=== PATIENT | female | born 1935 | race Caucasian/White ===

== ENCOUNTER 2016-05-22 09:36 | Inpatient (IN) | payer MEDICARE, OTHER ==
[~2016-05-22] VITALS: Ht 170.2 cm; Wt 54.4 kg
[~2016-05-22 09:36] MED LIST: ALBU18HF INH; ASPI-621 PO; BUDE10.2 PO; CARV3.122 PO; CEFD300C2 PO; CHOL10002 PO; DOXY100T PO; LEVO50TA5 PO; LEVO88TA2 PO; LEVO88TA4 PO; METF10002 PO; METF500T4 PO; MULTIVITAMIN PO; OMEG1CAP34 PO; PRED20TA PO; PRED50TA PO; PRED5TAB PO; SIMV40TA3 PO; TIOT18CA INH; [UNRECOGNIZED DRUG - CODE] PO
[2016-05-22] MEDS ORDERED: SODIUM CHLORIDE FLUSH 10ML SYR IVF ONE (10:30)
[2016-05-22] MEDS ORDERED: oxygen INH (10:30)
[2016-05-22] MEDS ORDERED: methylPREDNISolone SOD SUCC 125 MG/2 ML IVP ONE (10:30)
[2016-05-22] MEDS ORDERED: METF500T4 PO (10:31)
[2016-05-22] MEDS ORDERED: ASPI-496 PO (10:31)
[2016-05-22] MEDS ORDERED: methylPREDNISolone SOD SUCC 125 MG/2 ML ONE (10:34)
[2016-05-22] MEDS ORDERED: ALBUTEROL/IPRATROPIUM 2.5MG/0.5MG, 3 ML ONE (10:39)
[2016-05-22 10:52] LABS: HEMOGLOBIN 12.7 g/dL (11.7-16.4)
[2016-05-22] MEDS ORDERED: ALBUTEROL/IPRATROPIUM 2.5MG/0.5MG, 3 ML NPPB ONE (11:00)
[2016-05-22 11:04] LABS: ASPARTATE AMINO TRANSFERASE 10 U/L (15-37); BLOOD UREA NITROGEN 10 mg/dL (7-18)
[2016-05-22 11:08] LABS: IS PT STATUS REG ER OR PRE ER? YES
[2016-05-22] MEDS ORDERED: SODIUM CHLORIDE FLUSH 10ML SYR IVF PRN (11:30)
[2016-05-22 11:31] LABS: DIFF TOTAL CELLS COUNTED 100 CELL DIFF
[2016-05-22 11:33] LABS: VERIFY COUNTS? YES
[2016-05-22] MEDS: SENNA/DOCUSATE TABLET PO SCH (12:30)
[2016-05-22] MEDS ORDERED: ONDANSETRON 2MG/ML, 2ML IVP PRN (12:30)
[2016-05-22] MEDS: INSULIN REGULAR 100 UNITS/ML, 3ML VIAL SQ-INSULIN SCH ×3 (12:30→21:05)
[2016-05-22] MEDS ORDERED: ENOXAPARIN 40 MG/0.4 ML SQ SCH (12:30)
[2016-05-22] MEDS ORDERED: MORPHINE SULFATE 4 MG/ML, 1ML IVPush PRN (12:30)
[2016-05-22] MEDS ORDERED: LORazepam 2 MG/ML, 1ML IVPush PRN (12:30)
[2016-05-22] MEDS ORDERED: HYDROcodone/APAP 5/325 TABLET PO PRN (12:30)
[2016-05-22 14:35] VITALS: BP 123/57
[2016-05-22] MEDS: SODIUM CHLORIDE 0.9% 1,000 ML IV SCH (16:06)
[2016-05-22] MEDS: methylPREDNISolone SOD SUCC 125 MG/2 ML IVPush SCH ×2 (16:10→23:45)
[2016-05-22] MEDS: AZITHROMYCIN 500 MG TABLET PO SCH (16:16)
[2016-05-22 19:36] VITALS: BP 95/53
[2016-05-22] MEDS ORDERED: SIMVASTATIN 40 MG TABLET PO SCH (21:00)
[2016-05-22] MEDS: FAMOTIDINE 20 MG TABLET PO SCH (21:02)
[2016-05-22] MEDS: CARVEDILOL 3.125 MG TABLET PO SCH (21:03)
[2016-05-22] MEDS: ALBUTEROL/IPRATROPIUM 2.5MG/0.5MG, 3 ML NPPB SCH (21:25)
[2016-05-22] MEDS: BUDESONIDE 0.5 MG/2 ML INHA NPPB SCH (21:25)
[2016-05-22] MEDS: FLUTICASONE/VILANTEROL 200-25MCG/INH INH SCH (23:45)
[2016-05-23] MEDS: SODIUM CHLORIDE 0.9% 1,000 ML IV SCH (01:54)
[2016-05-23 02:13] VITALS: BP 110/61
[2016-05-23 04:01] LABS: HEMOGLOBIN 11.9 g/dL (11.7-16.4)
[2016-05-23 04:15] LABS: BLOOD UREA NITROGEN 13 mg/dL (7-18)
[2016-05-23] MEDS ORDERED: LEVOTHYROXINE 88 MCG TABLET PO SCH (06:00)
[2016-05-23] MEDS: ALBUTEROL/IPRATROPIUM 2.5MG/0.5MG, 3 ML NPPB SCH ×2 (06:32→10:00)
[2016-05-23] MEDS: methylPREDNISolone SOD SUCC 125 MG/2 ML IVPush SCH (07:52)
[2016-05-23] MEDS: FAMOTIDINE 20 MG TABLET PO SCH (07:52)
[2016-05-23] MEDS: AZITHROMYCIN 500 MG TABLET PO SCH (07:52)
[2016-05-23] MEDS: CARVEDILOL 3.125 MG TABLET PO SCH (07:52)
[2016-05-23] MEDS: SENNA/DOCUSATE TABLET PO SCH (07:53)
[2016-05-23] MEDS: FLUTICASONE/VILANTEROL 200-25MCG/INH INH SCH (07:54)
[2016-05-23 08:19] VITALS: BP 102/52
[2016-05-23] MEDS ORDERED: OMEGA-3/FISH OIL CAPSULE PO SCH (09:00)
[2016-05-23] MEDS ORDERED: ASPIRIN 81 MG TABLET EC PO SCH (09:00)
[2016-05-23] MEDS: BUDESONIDE 0.5 MG/2 ML INHA NPPB SCH (09:00)
[2016-05-23] MEDS ORDERED: IMIPRAMINE 50 MG TABLET PO SCH (09:00)
[2016-05-23] MEDS: INSULIN REGULAR 100 UNITS/ML, 3ML VIAL SQ-INSULIN SCH ×2 (09:16→11:40)
[2016-05-23 12:25] VITALS: BP 115/63
[2016-05-23] MEDS ORDERED: PRED10TA PO (12:48)
[2016-05-23] MEDS ORDERED: GUAI400T26 PO (12:48)
[2016-05-23] MEDS ORDERED: FAMO20TA7 PO (12:48)
[2016-05-23] MEDS ORDERED: AZIT500T4 PO (12:48)
== END 2016-05-23 14:40 | disposition home or self-care (01) | DRG 189 ==
LOC: ED 11:17 → EDIP 11:20 → 3NW 14:20 → DCLOUNGE 05-23 14:21
PROVIDERS: ADMIT Internal Medicine; ATTEND Internal Medicine
DX: J96.20 Acute and chronic respiratory failure, unspecified whether with hypoxia or hypercapnia (principal); J44.1 Chronic obstructive pulmonary disease with (acute) exacerbation; D72.829 Elevated white blood cell count, unspecified; E03.9 Hypothyroidism, unspecified; E11.9 Type 2 diabetes mellitus without complications; E78.5 Hyperlipidemia, unspecified; F32.9 Major depressive disorder, single episode, unspecified; I10 Essential (primary) hypertension; I25.2 Old myocardial infarction; Z90.49 Acquired absence of other specified parts of digestive tract; Z85.038 Personal history of other malignant neoplasm of large intestine; Z85.3 Personal history of malignant neoplasm of breast; Z95.0 Presence of cardiac pacemaker; Z87.891 Personal history of nicotine dependence; Z82.49 Family history of ischemic heart disease and other diseases of the circulatory system
CPT/HCPCS: 36415; 71010; 80048; 80053; 82962; 83036; 83605; 83880; 84443; 84484; 85025; 87040; 93005; 94640; 96374; J1650; J1815; J7620; J7626; J2930; J7030

== ENCOUNTER 2017-08-13 10:15 | Inpatient (IN) | payer MEDICARE, OTHER ==
[~2017-08-13] VITALS: Ht 170.2 cm; Wt 67.8 kg
[~2017-08-13 10:15] MED LIST changes: +ASPI-496 PO; +AZIT500T5 PO; -CEFD300C2 PO; +CEFD300C37 PO; +FAMO20TA7 PO; +GUAI400T66 PO; -METF500T4 PO; +METF500T5 PO; +PRED10TA PO; +oxygen INH
[2017-08-13 11:16] LABS: MEAN CORPUSCULAR HEMOGLOBIN 32.5 pg (27.0-34.8); MEAN CORPUSCULAR HGB CONC 33.6 g/dL (32.4-35.8); MEAN CORPUSCULAR VOLUME 96.6 fL (80-100); MEAN PLATELET VOLUME 7.3 fL (7.4-10.4); PLATELET COUNT 225 x10^3/uL (130-400); RED CELL DISTRIBUTION WIDTH 13.2 % (9.6-15.2)
[2017-08-13] MEDS ORDERED: FLUT1BLS3 INH (11:19)
[2017-08-13] MEDS ORDERED: ALBU18HF INH (11:20)
[2017-08-13 11:23] LABS: ALBUMIN 3.1 g/dL (3.4-5.0); ANION GAP 9 mmol/L (5-15); CALCIUM 8.3 mg/dL (8.5-10.1); CHLORIDE 99 mmol/L (98-107)
[2017-08-13 11:44] LABS: MD YES
[2017-08-13 11:46] LABS: <PLATELET ESTIMATE> ADEQUATE; <PLT MORPHOLOGY> NORMAL PLT MORPH; <RBC MORPHOLOGY> NORMAL; BANDS%(MANUAL) 25 % (0-7); EOS#(MANUAL) 0.15 x10^3/uL (0.0-0.4); EOS% (MANUAL) 1 % (1-7); LYMPH#(MANUAL) 1.33 x10^3/uL (1-3.4); LYMPHS% (MANUAL) 9 % (22-44); METAMYELOCYTES# (MANUAL) 0.44 x10^3/uL (0-0); METAMYELOCYTES% (MANUAL) 3 % (0-1); MONOS#(MANUAL) 0.59 x10^3/uL (0.3-2.7); MONOS% (MANUAL) 4 % (2-9); SEG#(MANUAL) 8.58 x10^3/uL (1.8-6.8); SEGS% (MANUAL) 58 % (42-75)
[2017-08-13 12:39] LABS: TROPONIN I < 0.015 ng/mL (0.000-0.045)
[2017-08-13] MEDS ORDERED: CEFTRIAXONE PMX 1GM/50ML 50 ML IVPB ONE (13:00)
[2017-08-13] MEDS ORDERED: ONDANSETRON 2MG/ML, 2ML IVPB PRN (14:00)
[2017-08-13] MEDS ORDERED: ACETAMINOPHEN 325 MG TABLET PO PRN (14:00)
[2017-08-13] MEDS ORDERED: ACETAMINOPHEN 650 MG SUPP PR PRN (14:00)
[2017-08-13] MEDS ORDERED: BISACODYL 10 MG SUPP PR PRN (14:00)
[2017-08-13] MEDS ORDERED: PHARMACY MAY ADJ FOR RENAL FX MC PRN (14:00)
[2017-08-13] MEDS ORDERED: CEFTRIAXONE PMX 1GM/50ML 50 ML ONE (14:42)
[2017-08-13] MEDS: CEFTRIAXONE PMX 1GM/50ML 50 ML IVPB SCH (14:47)
[2017-08-13] MEDS: SODIUM CHLORIDE 0.9% 1,000 ML IV SCH (15:03)
[2017-08-13] MEDS ORDERED: ENOXAPARIN 40 MG/0.4 ML ONE (15:37)
[2017-08-13] MEDS: ENOXAPARIN 40 MG/0.4 ML SQ SCH (15:40)
[2017-08-13] MEDS: INSULIN LISPRO 100 UNITS/ML, PEN SQ-INSULIN SCH ×2 (16:00→22:54)
[2017-08-13] MEDS ORDERED: ALBUTEROL/IPRATROPIUM 2.5MG/0.5MG, 3 ML NPPB PRN (16:30)
[2017-08-13] MEDS: AZITHROMYCIN 500 MG in SODIUM CHLORIDE 0.9% 250 ML IV SCH (17:22)
[2017-08-13 19:05] VITALS: BP 98/59
[2017-08-13] MEDS: ALBUTEROL/IPRATROPIUM 2.5MG/0.5MG, 3 ML NPPB SCH (21:00)
[2017-08-13] MEDS: CARVEDILOL 3.125 MG TABLET PO SCH (21:00)
[2017-08-13] MEDS: metFORMIN 500 MG TABLET PO SCH ×2 (21:00→21:51)
[2017-08-13 21:50] VITALS: BP 104/49
[2017-08-13] MEDS: SIMVASTATIN 40 MG TABLET PO SCH (21:52)
[2017-08-14] MEDS: SODIUM CHLORIDE 0.9% 1,000 ML IV SCH (00:02)
[2017-08-14 01:09] VITALS: BP 101/57
[2017-08-14 05:49] LABS: CHLORIDE 106 mmol/L (98-107)
[2017-08-14 06:00] LABS: MEAN CORPUSCULAR HEMOGLOBIN 32.3 pg (27.0-34.8); MEAN CORPUSCULAR HGB CONC 33.9 g/dL (32.4-35.8); MEAN CORPUSCULAR VOLUME 95.2 fL (80-100); MEAN PLATELET VOLUME 7.4 fL (7.4-10.4); PLATELET COUNT 211 x10^3/uL (130-400); RED BLOOD COUNT 3.36 x10^6/uL (3.82-5.3); RED CELL DISTRIBUTION WIDTH 12.7 % (9.6-15.2)
[2017-08-14 06:21] LABS: ANION GAP 9 mmol/L (5-15); CREATININE 0.63 mg/dL (0.55-1.02)
[2017-08-14] MEDS: LEVOTHYROXINE 88 MCG TABLET PO SCH (06:21)
[2017-08-14 06:22] LABS: MD YES
[2017-08-14 06:23] LABS: BAND#(MANUAL) 1.95 x10^3/uL; BANDS%(MANUAL) 14 % (0-7); LYMPH#(MANUAL) 1.39 x10^3/uL (1-3.4); LYMPHS% (MANUAL) 10 % (22-44); MONOS#(MANUAL) 1.39 x10^3/uL (0.3-2.7); MONOS% (MANUAL) 10 % (2-9); SEG#(MANUAL) 9.17 x10^3/uL (1.8-6.8); SEGS% (MANUAL) 66 % (42-75)
[2017-08-14 06:24] LABS: ANISOCYTOSIS 1+; POLYCHROMASIA 1+
[2017-08-14 06:26] LABS: <PLATELET ESTIMATE> ADEQUATE; <PLT MORPHOLOGY> NORMAL PLT MORPH
[2017-08-14] MEDS: INSULIN LISPRO 100 UNITS/ML, PEN SQ-INSULIN SCH ×4 (07:00→20:44)
[2017-08-14 07:27] VITALS: BP 109/66
[2017-08-14 08:00] VITALS: BP 112/51
[2017-08-14] MEDS: ALBUTEROL/IPRATROPIUM 2.5MG/0.5MG, 3 ML NPPB SCH ×4 (08:32→20:00)
[2017-08-14] MEDS ORDERED: IMIPRAMINE 50 MG TABLET PO SCH (09:00)
[2017-08-14] MEDS ORDERED: HYDROcodone/CHLORPHENIR ORAL SUSP PO PRN (09:00)
[2017-08-14] MEDS: ASPIRIN 81 MG TABLET EC PO SCH (11:00)
[2017-08-14] MEDS: CARVEDILOL 3.125 MG TABLET PO SCH ×2 (11:00→20:43)
[2017-08-14] MEDS: metFORMIN 500 MG TABLET PO SCH ×3 (11:00→20:44)
[2017-08-14] MEDS ORDERED: VANCOMYCIN PER PHARMACY MC PRN (13:30)
[2017-08-14] MEDS ORDERED: PHARMACOKINETIC MONITORING MC PRN (13:30)
[2017-08-14] MEDS ORDERED: PHARMACOKINETIC CONSULTATION MC ONE (13:30)
[2017-08-14 16:22] VITALS: BP 116/68
[2017-08-14] MEDS: ENOXAPARIN 40 MG/0.4 ML SQ SCH (16:24)
[2017-08-14] MEDS: CEFTRIAXONE PMX 1GM/50ML 50 ML IVPB SCH (16:25)
[2017-08-14] MEDS: AZITHROMYCIN 500 MG in SODIUM CHLORIDE 0.9% 250 ML IV SCH (18:10)
[2017-08-14] MEDS: VANCOMYCIN 1,200 MG in SODIUM CHLORIDE 0.9% 250 ML IV SCH (19:27)
[2017-08-14 20:37] VITALS: BP 120/59
[2017-08-14] MEDS: SIMVASTATIN 40 MG TABLET PO SCH (20:43)
[2017-08-14 21:16] VITALS: BP 108/54
[2017-08-15 01:33] VITALS: BP 124/65
[2017-08-15 05:13] LABS: BASOPHILS # (AUTO) 0.02 x10^3/uL (0-0.1); BASOPHILS % (AUTO) 0 % (0-1); EOSINOPHILS # (AUTO) 0.02 x10^3/uL (0-0.4); EOSINOPHILS % (AUTO) 0 % (1-7); LYMPHOCYTES # (AUTO) 1.15 x10^3/uL (1-3.4); LYMPHOCYTES % (AUTO) 9 % (22-44); MD NO; MEAN CORPUSCULAR HEMOGLOBIN 31.1 pg (27.0-34.8); MEAN CORPUSCULAR HGB CONC 32.5 g/dL (32.4-35.8); MEAN CORPUSCULAR VOLUME 95.6 fL (80-100); MEAN PLATELET VOLUME 7.7 fL (7.4-10.4); MONOCYTES # (AUTO) 1.11 x10^3/uL (0.2-0.8); MONOCYTES % (AUTO) 9 % (2-9); NEUTROPHILS # (AUTO) 10.32 x10^3/uL (1.8-6.8); NEUTROPHILS % (AUTO) 82 % (42-75); PLATELET COUNT 224 x10^3/uL (130-400); RED BLOOD COUNT 3.33 x10^6/uL (3.82-5.3); RED CELL DISTRIBUTION WIDTH 12.9 % (9.6-15.2)
[2017-08-15 05:19] LABS: CREATININE 0.53 mg/dL (0.55-1.02)
[2017-08-15] MEDS: LEVOTHYROXINE 88 MCG TABLET PO SCH (06:14)
[2017-08-15] MEDS: ASPIRIN 81 MG TABLET EC PO SCH (08:09)
[2017-08-15] MEDS: CARVEDILOL 3.125 MG TABLET PO SCH ×2 (08:09→21:07)
[2017-08-15] MEDS: metFORMIN 500 MG TABLET PO SCH ×3 (08:10→21:06)
[2017-08-15] MEDS: INSULIN LISPRO 100 UNITS/ML, PEN SQ-INSULIN SCH ×4 (08:11→21:09)
[2017-08-15] MEDS: ALBUTEROL/IPRATROPIUM 2.5MG/0.5MG, 3 ML NPPB SCH ×4 (08:35→19:36)
[2017-08-15 09:02] VITALS: BP 109/55
[2017-08-15] MEDS: AZITHROMYCIN 500 MG in SODIUM CHLORIDE 0.9% 250 ML IV SCH (14:00)
[2017-08-15] MEDS ORDERED: AZITHROMYCIN 500 MG TABLET PO SCH (14:51)
[2017-08-15] MEDS: ENOXAPARIN 40 MG/0.4 ML SQ SCH (15:18)
[2017-08-15] MEDS: CEFTRIAXONE PMX 1GM/50ML 50 ML IVPB SCH (15:19)
[2017-08-15 15:34] LABS: CLOSTRIDIUM DIFFICILE ANTIGEN NEGATIVE; CLOSTRIDIUM DIFFICILE TOXIN NEGATIVE (Negative)
[2017-08-15] MEDS: VANCOMYCIN 1,200 MG in SODIUM CHLORIDE 0.9% 250 ML IV SCH (17:18)
[2017-08-15 17:30] VITALS: BP 116/76
[2017-08-15 20:11] VITALS: BP 157/67
[2017-08-15] MEDS: IMIPRAMINE 25 MG TABLET PO SCH (21:00)
[2017-08-15] MEDS: SIMVASTATIN 40 MG TABLET PO SCH (21:06)
[2017-08-16 01:23] VITALS: BP 104/48
[2017-08-16 05:51] LABS: ALBUMIN 2.4 g/dL (3.4-5.0); ANION GAP 8 mmol/L (5-15); CALCIUM 8.3 mg/dL (8.5-10.1); CHLORIDE 108 mmol/L (98-107)
[2017-08-16 05:53] LABS: CREATININE 0.67 mg/dL (0.55-1.02)
[2017-08-16] MEDS: LEVOTHYROXINE 88 MCG TABLET PO SCH (05:54)
[2017-08-16 06:03] LABS: MEAN CORPUSCULAR HEMOGLOBIN 31.7 pg (27.0-34.8); MEAN CORPUSCULAR HGB CONC 33.1 g/dL (32.4-35.8); MEAN CORPUSCULAR VOLUME 95.7 fL (80-100); MEAN PLATELET VOLUME 7.4 fL (7.4-10.4); PLATELET COUNT 269 x10^3/uL (130-400); RED BLOOD COUNT 3.52 x10^6/uL (3.82-5.3); RED CELL DISTRIBUTION WIDTH 12.5 % (9.6-15.2)
[2017-08-16] MEDS ORDERED: POTASSIUM PHOSPHATE 44 MEQ in SODIUM CHLORIDE 0.9% 500 ML IV ONE (06:30)
[2017-08-16] MEDS ORDERED: MAGNESIUM SULFATE PMX 4GM/100M 100 ML IV ONE (06:30)
[2017-08-16 06:43] LABS: BASOPHILS # (AUTO) 0.03 x10^3/uL (0-0.1); BASOPHILS % (AUTO) 0 % (0-1); EOSINOPHILS # (AUTO) 0.04 x10^3/uL (0-0.4); EOSINOPHILS % (AUTO) 0 % (1-7); LYMPHOCYTES % (AUTO) 8 % (22-44); MD SCAN; MONOCYTES # (AUTO) 1.48 x10^3/uL (0.2-0.8); MONOCYTES % (AUTO) 10 % (2-9); NEUTROPHILS # (AUTO) 12.86 x10^3/uL (1.8-6.8); NEUTROPHILS % (AUTO) 82 % (42-75)
[2017-08-16] MEDS: INSULIN LISPRO 100 UNITS/ML, PEN SQ-INSULIN SCH ×4 (07:00→21:22)
[2017-08-16 07:21] VITALS: BP 137/65
[2017-08-16] MEDS: ALBUTEROL/IPRATROPIUM 2.5MG/0.5MG, 3 ML NPPB SCH ×4 (07:45→19:25)
[2017-08-16] MEDS: POTASSIUM CHLORIDE 20 MEQ TAB.ER.PRT PO SCH ×2 (08:14→16:36)
[2017-08-16] MEDS: metFORMIN 500 MG TABLET PO SCH ×3 (08:15→21:23)
[2017-08-16] MEDS: CARVEDILOL 3.125 MG TABLET PO SCH ×2 (08:15→21:24)
[2017-08-16] MEDS: ASPIRIN 81 MG TABLET EC PO SCH (08:15)
[2017-08-16] MEDS ORDERED: AZITHROMYCIN 500 MG in SODIUM CHLORIDE 0.9% 250 ML IV SCH (09:00)
[2017-08-16 12:54] VITALS: BP 90/49
[2017-08-16] MEDS: methylPREDNISolone SOD SUCC 125 MG/2 ML IVPush SCH ×2 (13:47→21:22)
[2017-08-16] MEDS: CEFTRIAXONE PMX 1GM/50ML 50 ML IVPB SCH (13:48)
[2017-08-16] MEDS: ENOXAPARIN 40 MG/0.4 ML SQ SCH (13:54)
[2017-08-16] MEDS: AMPICILLIN/SULBACTAM 3 GM in SODIUM CHLORIDE 0.9% 100 ML IV SCH ×2 (15:46→21:25)
[2017-08-16 19:43] VITALS: BP 145/73
[2017-08-16] MEDS: SIMVASTATIN 40 MG TABLET PO SCH (21:23)
[2017-08-16] MEDS: IMIPRAMINE 25 MG TABLET PO SCH (21:25)
[2017-08-17 00:45] VITALS: BP 106/57
[2017-08-17] MEDS: methylPREDNISolone SOD SUCC 125 MG/2 ML IVPush SCH ×4 (02:56→22:34)
[2017-08-17] MEDS: AMPICILLIN/SULBACTAM 3 GM in SODIUM CHLORIDE 0.9% 100 ML IV SCH ×4 (03:15→23:04)
[2017-08-17 05:15] LABS: MEAN CORPUSCULAR HEMOGLOBIN 31.8 pg (27.0-34.8); MEAN CORPUSCULAR HGB CONC 33.6 g/dL (32.4-35.8); MEAN CORPUSCULAR VOLUME 94.8 fL (80-100); MEAN PLATELET VOLUME 6.9 fL (7.4-10.4); PLATELET COUNT 253 x10^3/uL (130-400); RED BLOOD COUNT 3.34 x10^6/uL (3.82-5.3); RED CELL DISTRIBUTION WIDTH 12.9 % (9.6-15.2)
[2017-08-17 05:23] LABS: ALBUMIN 2.3 g/dL (3.4-5.0); ANION GAP 10 mmol/L (5-15); CALCIUM 7.7 mg/dL (8.5-10.1); CHLORIDE 109 mmol/L (98-107)
[2017-08-17 06:01] LABS: BASOPHILS # (AUTO) 0.01 x10^3/uL (0-0.1); BASOPHILS % (AUTO) 0 % (0-1); EOSINOPHILS % (AUTO) 0 % (1-7); LYMPHOCYTES # (AUTO) 1.16 x10^3/uL (1-3.4); LYMPHOCYTES % (AUTO) 8 % (22-44); MD SCAN; MONOCYTES # (AUTO) 0.46 x10^3/uL (0.2-0.8); MONOCYTES % (AUTO) 3 % (2-9); NEUTROPHILS # (AUTO) 12.17 x10^3/uL (1.8-6.8); NEUTROPHILS % (AUTO) 88 % (42-75)
[2017-08-17] MEDS: LEVOTHYROXINE 88 MCG TABLET PO SCH (06:22)
[2017-08-17] MEDS: INSULIN LISPRO 100 UNITS/ML, PEN SQ-INSULIN SCH ×4 (07:00→21:42)
[2017-08-17] MEDS: ALBUTEROL/IPRATROPIUM 2.5MG/0.5MG, 3 ML NPPB SCH ×4 (07:30→19:54)
[2017-08-17] MEDS: ASPIRIN 81 MG TABLET EC PO SCH (09:00)
[2017-08-17 09:31] VITALS: BP 137/65
[2017-08-17] MEDS: CARVEDILOL 3.125 MG TABLET PO SCH ×2 (09:35→21:18)
[2017-08-17] MEDS: metFORMIN 500 MG TABLET PO SCH ×3 (09:35→21:18)
[2017-08-17 09:36] LABS: FIO2 100 %
[2017-08-17 12:42] LABS: TOTAL PROTEIN 5.8 g/dL (6.4-8.2)
[2017-08-17] MEDS: ENOXAPARIN 40 MG/0.4 ML SQ SCH (13:13)
[2017-08-17 14:52] VITALS: BP 123/60
[2017-08-17 20:00] VITALS: BP 131/63
[2017-08-17] MEDS: IMIPRAMINE 25 MG TABLET PO SCH (21:00)
[2017-08-17] MEDS: SIMVASTATIN 40 MG TABLET PO SCH (21:18)
[2017-08-18 02:00] VITALS: BP 126/56
[2017-08-18] MEDS: AMPICILLIN/SULBACTAM 3 GM in SODIUM CHLORIDE 0.9% 100 ML IV SCH ×4 (04:39→22:39)
[2017-08-18] MEDS: methylPREDNISolone SOD SUCC 125 MG/2 ML IVPush SCH ×3 (04:39→16:27)
[2017-08-18] MEDS: LEVOTHYROXINE 88 MCG TABLET PO SCH (04:47)
[2017-08-18] MEDS: ALBUTEROL/IPRATROPIUM 2.5MG/0.5MG, 3 ML NPPB SCH ×4 (07:05→19:24)
[2017-08-18] MEDS: CARVEDILOL 3.125 MG TABLET PO SCH ×2 (07:50→20:59)
[2017-08-18] MEDS: metFORMIN 500 MG TABLET PO SCH ×3 (07:50→20:59)
[2017-08-18] MEDS: IMIPRAMINE 25 MG TABLET PO SCH (07:51)
[2017-08-18] MEDS: ASPIRIN 81 MG TABLET EC PO SCH (07:52)
[2017-08-18] MEDS: INSULIN LISPRO 100 UNITS/ML, PEN SQ-INSULIN SCH ×4 (07:53→20:59)
[2017-08-18 09:30] VITALS: BP 103/45
[2017-08-18 14:00] VITALS: BP 137/69
[2017-08-18] MEDS: ENOXAPARIN 40 MG/0.4 ML SQ SCH (14:23)
[2017-08-18] MEDS ORDERED: VANCOMYCIN PER PHARMACY MC PRN (16:30)
[2017-08-18] MEDS ORDERED: VANCOMYCIN 1,200 MG in SODIUM CHLORIDE 0.9% 250 ML IV SCH (17:00)
[2017-08-18] MEDS: SODIUM CHLORIDE 0.9% 1,000 ML IV SCH (17:42)
[2017-08-18 18:52] VITALS: BP 141/57
[2017-08-18] MEDS: LACTOBACILLUS CHEW TABLET PO SCH (20:59)
[2017-08-18] MEDS: SIMVASTATIN 40 MG TABLET PO SCH (20:59)
[2017-08-18] MEDS ORDERED: IMIPRAMINE 50 MG TABLET PO SCH (21:00)
[2017-08-19 01:53] VITALS: BP 136/62
[2017-08-19] MEDS: AMPICILLIN/SULBACTAM 3 GM in SODIUM CHLORIDE 0.9% 100 ML IV SCH ×4 (04:21→22:07)
[2017-08-19 04:46] LABS: MEAN CORPUSCULAR HEMOGLOBIN 31.4 pg (27.0-34.8); MEAN CORPUSCULAR HGB CONC 33.1 g/dL (32.4-35.8); MEAN CORPUSCULAR VOLUME 94.8 fL (80-100); MEAN PLATELET VOLUME 6.9 fL (7.4-10.4); PLATELET COUNT 359 x10^3/uL (130-400); RED BLOOD COUNT 3.63 x10^6/uL (3.82-5.3); RED CELL DISTRIBUTION WIDTH 13.1 % (9.6-15.2)
[2017-08-19 05:08] LABS: HEMOGLOBIN A1C 7.2 % (4.2-6.3)
[2017-08-19 05:46] LABS: MD YES
[2017-08-19 05:49] LABS: <PLATELET ESTIMATE> ADEQUATE; <PLT MORPHOLOGY> NORMAL PLT MORPH; <RBC MORPHOLOGY> NORMAL; BAND#(MANUAL) 0.49 x10^3/uL; BANDS%(MANUAL) 3 % (0-7); LYMPH#(MANUAL) 1.46 x10^3/uL (1-3.4); LYMPHS% (MANUAL) 9 % (22-44); METAMYELOCYTES# (MANUAL) 0.32 x10^3/uL (0-0); METAMYELOCYTES% (MANUAL) 2 % (0-1); MONOS#(MANUAL) 0.65 x10^3/uL (0.3-2.7); MONOS% (MANUAL) 4 % (2-9); MYELOCYTES# (MANUAL) 0.16 x10^3/uL (0-0); MYELOCYTES% (MANUAL) 1 % (0-0); SEG#(MANUAL) 13.12 x10^3/uL (1.8-6.8); SEGS% (MANUAL) 81 % (42-75)
[2017-08-19] MEDS: LEVOTHYROXINE 88 MCG TABLET PO SCH (05:50)
[2017-08-19 07:00] VITALS: BP 149/71
[2017-08-19] MEDS: INSULIN LISPRO 100 UNITS/ML, PEN SQ-INSULIN SCH ×4 (07:00→20:31)
[2017-08-19] MEDS: ALBUTEROL/IPRATROPIUM 2.5MG/0.5MG, 3 ML NPPB SCH ×5 (07:20→19:05)
[2017-08-19] MEDS: LACTOBACILLUS CHEW TABLET PO SCH ×3 (08:30→20:30)
[2017-08-19] MEDS: CARVEDILOL 3.125 MG TABLET PO SCH ×2 (08:30→20:29)
[2017-08-19] MEDS: metFORMIN 500 MG TABLET PO SCH ×3 (08:30→20:30)
[2017-08-19] MEDS: ASPIRIN 81 MG TABLET EC PO SCH (08:30)
[2017-08-19] MEDS ORDERED: methylPREDNISolone SOD SUCC 125 MG/2 ML IVPush SCH (09:00)
[2017-08-19 12:10] VITALS: BP 133/69
[2017-08-19] MEDS: ENOXAPARIN 40 MG/0.4 ML SQ SCH (14:19)
[2017-08-19 20:16] VITALS: BP 121/60
[2017-08-19] MEDS: SIMVASTATIN 40 MG TABLET PO SCH (20:31)
[2017-08-19] MEDS: IMIPRAMINE 25 MG TABLET PO SCH (20:31)
[2017-08-19] MEDS: SODIUM CHLORIDE 0.9% 1,000 ML IV SCH (23:38)
[2017-08-20 02:41] VITALS: BP 143/73
[2017-08-20] MEDS: AMPICILLIN/SULBACTAM 3 GM in SODIUM CHLORIDE 0.9% 100 ML IV SCH ×4 (04:45→22:12)
[2017-08-20] MEDS: LEVOTHYROXINE 88 MCG TABLET PO SCH (05:55)
[2017-08-20] MEDS: ALBUTEROL/IPRATROPIUM 2.5MG/0.5MG, 3 ML NPPB SCH ×4 (06:20→20:05)
[2017-08-20] MEDS: INSULIN LISPRO 100 UNITS/ML, PEN SQ-INSULIN SCH ×4 (07:00→21:00)
[2017-08-20 07:25] VITALS: BP 114/56
[2017-08-20] MEDS ORDERED: MIDAZOLAM 1 MG/ML, 5ML ONE (07:25)
[2017-08-20] MEDS ORDERED: FENTANYL PF 100 MCG/2ML ONE (07:25)
[2017-08-20] MEDS: metFORMIN 500 MG TABLET PO SCH ×3 (08:02→21:48)
[2017-08-20] MEDS: ASPIRIN 81 MG TABLET EC PO SCH (08:03)
[2017-08-20] MEDS: CARVEDILOL 3.125 MG TABLET PO SCH ×2 (08:03→21:49)
[2017-08-20] MEDS: LACTOBACILLUS CHEW TABLET PO SCH ×3 (08:03→21:49)
[2017-08-20] MEDS ORDERED: methylPREDNISolone SOD SUCC 40 MG/ML IVPush SCH (09:00)
[2017-08-20 11:01] VITALS: BP 131/65
[2017-08-20] MEDS ORDERED: LIDOCAINE GEL 2%, 5ML ONE (12:00)
[2017-08-20] MEDS ORDERED: LIDOCAINE 2%, 20ML ONE (12:00)
[2017-08-20 13:55] VITALS: BP 108/54
[2017-08-20 20:52] VITALS: BP 116/54
[2017-08-20] MEDS: IMIPRAMINE 25 MG TABLET PO SCH (21:49)
[2017-08-20] MEDS: ENOXAPARIN 40 MG/0.4 ML SQ SCH (21:54)
[2017-08-20] MEDS: SIMVASTATIN 40 MG TABLET PO SCH (21:54)
[2017-08-20] MEDS: SODIUM CHLORIDE 0.9% 1,000 ML IV SCH (21:54)
[2017-08-21 03:03] VITALS: BP 120/60
[2017-08-21] MEDS: AMPICILLIN/SULBACTAM 3 GM in SODIUM CHLORIDE 0.9% 100 ML IV SCH ×4 (04:38→22:38)
[2017-08-21 04:40] LABS: MEAN CORPUSCULAR HEMOGLOBIN 31.6 pg (27.0-34.8); MEAN CORPUSCULAR HGB CONC 32.8 g/dL (32.4-35.8); MEAN CORPUSCULAR VOLUME 96.4 fL (80-100); MEAN PLATELET VOLUME 6.9 fL (7.4-10.4); PLATELET COUNT 320 x10^3/uL (130-400); RED BLOOD COUNT 3.79 x10^6/uL (3.82-5.3); RED CELL DISTRIBUTION WIDTH 13.2 % (9.6-15.2)
[2017-08-21 04:45] LABS: ANION GAP 5 mmol/L (5-15); CALCIUM 7.8 mg/dL (8.5-10.1); CHLORIDE 103 mmol/L (98-107); CREATININE 0.64 mg/dL (0.55-1.02)
[2017-08-21] MEDS: LEVOTHYROXINE 88 MCG TABLET PO SCH (05:19)
[2017-08-21 05:56] LABS: BASOPHILS # (AUTO) 0.03 x10^3/uL (0-0.1); BASOPHILS % (AUTO) 0 % (0-1); EOSINOPHILS # (AUTO) 0.12 x10^3/uL (0-0.4); EOSINOPHILS % (AUTO) 1 % (1-7); LYMPHOCYTES # (AUTO) 1.69 x10^3/uL (1-3.4); LYMPHOCYTES % (AUTO) 11 % (22-44); MD SCAN; MONOCYTES # (AUTO) 0.92 x10^3/uL (0.2-0.8); MONOCYTES % (AUTO) 6 % (2-9); NEUTROPHILS # (AUTO) 12.84 x10^3/uL (1.8-6.8); NEUTROPHILS % (AUTO) 82 % (42-75)
[2017-08-21] MEDS: ALBUTEROL/IPRATROPIUM 2.5MG/0.5MG, 3 ML NPPB SCH ×4 (06:50→18:34)
[2017-08-21] MEDS ORDERED: POTASSIUM CHLORIDE 20 MEQ TAB.ER.PRT PO ONE (07:00)
[2017-08-21] MEDS: INSULIN LISPRO 100 UNITS/ML, PEN SQ-INSULIN SCH ×4 (07:00→21:00)
[2017-08-21 08:52] VITALS: BP 98/37
[2017-08-21] MEDS: CARVEDILOL 3.125 MG TABLET PO SCH ×3 (09:00→09:55)
[2017-08-21] MEDS: LACTOBACILLUS CHEW TABLET PO SCH ×3 (09:39→21:06)
[2017-08-21] MEDS: metFORMIN 500 MG TABLET PO SCH ×3 (09:39→21:06)
[2017-08-21] MEDS: ASPIRIN 81 MG TABLET EC PO SCH (09:39)
[2017-08-21 09:48] VITALS: BP 101/49
[2017-08-21 12:28] LABS: MICROSCOPIC NOT IND
[2017-08-21 12:32] LABS: CULTURE INDICATED? NO
[2017-08-21 13:13] VITALS: BP 107/45
[2017-08-21 20:36] VITALS: BP 135/58
[2017-08-21] MEDS: IMIPRAMINE 25 MG TABLET PO SCH (21:00)
[2017-08-21] MEDS: SIMVASTATIN 40 MG TABLET PO SCH (21:06)
[2017-08-21] MEDS: ENOXAPARIN 40 MG/0.4 ML SQ SCH (21:07)
[2017-08-22 00:35] VITALS: BP 135/65
[2017-08-22] MEDS: AMPICILLIN/SULBACTAM 3 GM in SODIUM CHLORIDE 0.9% 100 ML IV SCH ×4 (05:15→22:28)
[2017-08-22] MEDS: LEVOTHYROXINE 88 MCG TABLET PO SCH (05:16)
[2017-08-22 05:59] LABS: MEAN CORPUSCULAR HEMOGLOBIN 31.7 pg (27.0-34.8); MEAN CORPUSCULAR HGB CONC 33.1 g/dL (32.4-35.8); MEAN CORPUSCULAR VOLUME 95.9 fL (80-100); MEAN PLATELET VOLUME 7.1 fL (7.4-10.4); PLATELET COUNT 286 x10^3/uL (130-400); RED BLOOD COUNT 3.71 x10^6/uL (3.82-5.3); RED CELL DISTRIBUTION WIDTH 13.4 % (9.6-15.2)
[2017-08-22 06:04] LABS: ANION GAP 8 mmol/L (5-15); CALCIUM 8.3 mg/dL (8.5-10.1); CHLORIDE 104 mmol/L (98-107)
[2017-08-22] MEDS: ALBUTEROL/IPRATROPIUM 2.5MG/0.5MG, 3 ML NPPB SCH ×3 (07:00→19:45)
[2017-08-22] MEDS: INSULIN LISPRO 100 UNITS/ML, PEN SQ-INSULIN SCH ×4 (07:00→20:43)
[2017-08-22 07:12] LABS: MD YES
[2017-08-22 07:14] LABS: BAND#(MANUAL) 0.77 x10^3/uL; BANDS%(MANUAL) 5 % (0-7); EOS#(MANUAL) 0.15 x10^3/uL (0.0-0.4); EOS% (MANUAL) 1 % (1-7); LYMPH#(MANUAL) 1.54 x10^3/uL (1-3.4); LYMPHS% (MANUAL) 10 % (22-44); METAMYELOCYTES# (MANUAL) 0.15 x10^3/uL (0-0); METAMYELOCYTES% (MANUAL) 1 % (0-1); MONOS#(MANUAL) 0.92 x10^3/uL (0.3-2.7); MONOS% (MANUAL) 6 % (2-9); MYELOCYTES# (MANUAL) 0.15 x10^3/uL (0-0); MYELOCYTES% (MANUAL) 1 % (0-0); SEGS% (MANUAL) 76 % (42-75)
[2017-08-22 07:16] LABS: <PLATELET ESTIMATE> ADEQUATE; <PLT MORPHOLOGY> NORMAL PLT MORPH; ANISOCYTOSIS 1+; POLYCHROMASIA 1+; TOXIC GRAN 1+
[2017-08-22] MEDS ORDERED: POTASSIUM CHLORIDE 20 MEQ TAB.ER.PRT PO ONE (07:30)
[2017-08-22] MEDS ORDERED: MAGNESIUM SULFATE PMX 2GM/50ML 50 ML IV ONE (07:30)
[2017-08-22] MEDS: LACTOBACILLUS CHEW TABLET PO SCH ×3 (07:38→20:32)
[2017-08-22] MEDS: CARVEDILOL 3.125 MG TABLET PO SCH ×2 (07:38→20:35)
[2017-08-22] MEDS: metFORMIN 500 MG TABLET PO SCH ×3 (07:38→20:43)
[2017-08-22] MEDS: ASPIRIN 81 MG TABLET EC PO SCH (07:38)
[2017-08-22 08:28] VITALS: BP 90/54
[2017-08-22] MEDS ORDERED: ACID1TAB7 PO (10:55)
[2017-08-22 14:20] VITALS: BP 120/64
[2017-08-22] MEDS ORDERED: ALBUTEROL/IPRATROPIUM 2.5MG/0.5MG, 3 ML NPPB SCH (16:00)
[2017-08-22] MEDS: ENOXAPARIN 40 MG/0.4 ML SQ SCH (20:31)
[2017-08-22] MEDS: SIMVASTATIN 40 MG TABLET PO SCH (20:32)
[2017-08-22] MEDS: IMIPRAMINE 25 MG TABLET PO SCH (20:33)
[2017-08-22 20:53] VITALS: BP 117/47
[2017-08-23 02:58] VITALS: BP 120/56
[2017-08-23] MEDS: AMPICILLIN/SULBACTAM 3 GM in SODIUM CHLORIDE 0.9% 100 ML IV SCH ×3 (04:32→18:18)
[2017-08-23 04:37] LABS: ANION GAP 5 mmol/L (5-15); CALCIUM 8.2 mg/dL (8.5-10.1); CHLORIDE 102 mmol/L (98-107)
[2017-08-23 04:38] LABS: CREATININE 0.65 mg/dL (0.55-1.02)
[2017-08-23] MEDS: LEVOTHYROXINE 88 MCG TABLET PO SCH (05:40)
[2017-08-23] MEDS: ALBUTEROL/IPRATROPIUM 2.5MG/0.5MG, 3 ML NPPB SCH ×4 (06:40→18:55)
[2017-08-23] MEDS: INSULIN LISPRO 100 UNITS/ML, PEN SQ-INSULIN SCH ×4 (07:44→20:40)
[2017-08-23 08:49] VITALS: BP 93/47
[2017-08-23] MEDS: CARVEDILOL 3.125 MG TABLET PO SCH ×2 (09:18→20:44)
[2017-08-23] MEDS: metFORMIN 500 MG TABLET PO SCH ×3 (10:18→21:05)
[2017-08-23] MEDS: LACTOBACILLUS CHEW TABLET PO SCH ×3 (10:18→21:05)
[2017-08-23] MEDS: ASPIRIN 81 MG TABLET EC PO SCH (10:18)
[2017-08-23 13:46] VITALS: BP 147/55
[2017-08-23 20:18] VITALS: BP 105/63
[2017-08-23] MEDS: ENOXAPARIN 40 MG/0.4 ML SQ SCH (21:04)
[2017-08-23] MEDS: SIMVASTATIN 40 MG TABLET PO SCH (21:05)
[2017-08-23] MEDS: IMIPRAMINE 25 MG TABLET PO SCH (21:05)
[2017-08-24] MEDS: AMPICILLIN/SULBACTAM 3 GM in SODIUM CHLORIDE 0.9% 100 ML IV SCH ×4 (00:18→18:18)
[2017-08-24 02:39] VITALS: BP 129/68
[2017-08-24] MEDS: LEVOTHYROXINE 88 MCG TABLET PO SCH (06:05)
[2017-08-24] MEDS: ALBUTEROL/IPRATROPIUM 2.5MG/0.5MG, 3 ML NPPB SCH ×3 (06:50→19:45)
[2017-08-24] MEDS: INSULIN LISPRO 100 UNITS/ML, PEN SQ-INSULIN SCH ×4 (07:00→21:06)
[2017-08-24 07:40] VITALS: BP 82/50
[2017-08-24 08:00] VITALS: BP 95/42
[2017-08-24] MEDS: metFORMIN 500 MG TABLET PO SCH ×4 (10:00→21:13)
[2017-08-24] MEDS: LACTOBACILLUS CHEW TABLET PO SCH ×3 (10:00→20:56)
[2017-08-24] MEDS: ASPIRIN 81 MG TABLET EC PO SCH (10:05)
[2017-08-24 12:54] VITALS: BP 92/50
[2017-08-24 19:41] VITALS: BP 96/54
[2017-08-24] MEDS: IMIPRAMINE 25 MG TABLET PO SCH (20:56)
[2017-08-24] MEDS: ENOXAPARIN 40 MG/0.4 ML SQ SCH (20:56)
[2017-08-24] MEDS: SIMVASTATIN 40 MG TABLET PO SCH (20:57)
[2017-08-24] MEDS ORDERED: IMIPRAMINE PAMOATE 100 MG PO SCH (22:30)
[2017-08-25] MEDS: AMPICILLIN/SULBACTAM 3 GM in SODIUM CHLORIDE 0.9% 100 ML IV SCH ×3 (00:04→13:34)
[2017-08-25 01:50] VITALS: BP 121/54
[2017-08-25 05:11] LABS: MEAN CORPUSCULAR HEMOGLOBIN 31.6 pg (27.0-34.8); MEAN CORPUSCULAR HGB CONC 32.7 g/dL (32.4-35.8); MEAN CORPUSCULAR VOLUME 96.6 fL (80-100); MEAN PLATELET VOLUME 7.7 fL (7.4-10.4); PLATELET COUNT 248 x10^3/uL (130-400); RED BLOOD COUNT 3.69 x10^6/uL (3.82-5.3)
[2017-08-25] MEDS: LEVOTHYROXINE 88 MCG TABLET PO SCH (05:51)
[2017-08-25 05:59] LABS: BASOPHILS # (AUTO) 0.06 x10^3/uL (0-0.1); BASOPHILS % (AUTO) 0 % (0-1); EOSINOPHILS # (AUTO) 0.43 x10^3/uL (0-0.4); EOSINOPHILS % (AUTO) 3 % (1-7); LYMPHOCYTES % (AUTO) 11 % (22-44); MD SCAN; MONOCYTES # (AUTO) 1.75 x10^3/uL (0.2-0.8); MONOCYTES % (AUTO) 10 % (2-9); NEUTROPHILS # (AUTO) 13.09 x10^3/uL (1.8-6.8); NEUTROPHILS % (AUTO) 76 % (42-75)
[2017-08-25] MEDS: INSULIN LISPRO 100 UNITS/ML, PEN SQ-INSULIN SCH ×2 (08:00→11:00)
[2017-08-25 08:13] VITALS: BP 98/44
[2017-08-25] MEDS: ALBUTEROL/IPRATROPIUM 2.5MG/0.5MG, 3 ML NPPB SCH (08:39)
[2017-08-25] MEDS: metFORMIN 500 MG TABLET PO SCH ×2 (09:00→10:38)
[2017-08-25] MEDS: LACTOBACILLUS CHEW TABLET PO SCH (10:31)
[2017-08-25] MEDS: ASPIRIN 81 MG TABLET EC PO SCH (10:31)
[2017-08-25] MEDS ORDERED: ACET325T14 PO (13:30)
[2017-08-25] MEDS ORDERED: IPRA3AMP NPPB (13:30)
[2017-08-25] MEDS ORDERED: INSU100I11 SQ-INSULIN (13:30)
[2017-08-25] MEDS ORDERED: AMPI3VIA IV (13:30)
[2017-08-25 13:34] VITALS: BP 102/48
== END 2017-08-25 16:56 | DRG 853 ==
LOC: ED 12:55 → EDIP 12:56 → ED 13:31 → 4WST 15:21 → 3NW 08-17 14:07
PROVIDERS: ADMIT Hospitalist; ATTEND Hospitalist
PROC: 0W9B3ZZ Drainage of Left Pleural Cavity, Percutaneous Approach (ICD-10-PCS; principal; 2017-08-17)
PROC: 0B9J8ZX Drainage of Left Lower Lung Lobe, Via Natural or Artificial Opening Endoscopic, Diagnostic (ICD-10-PCS; 2017-08-20)
PROC: 0BDB8ZX Extraction of Left Lower Lobe Bronchus, Via Natural or Artificial Opening Endoscopic, Diagnostic (ICD-10-PCS; 2017-08-20)
DX: A41.01 Sepsis due to Methicillin susceptible Staphylococcus aureus (principal); J15.9 Unspecified bacterial pneumonia; J96.21 Acute and chronic respiratory failure with hypoxia; E43 Unspecified severe protein-calorie malnutrition; J44.1 Chronic obstructive pulmonary disease with (acute) exacerbation; J44.0 Chronic obstructive pulmonary disease with (acute) lower respiratory infection; E87.1 Hypo-osmolality and hyponatremia; C34.90 Malignant neoplasm of unspecified part of unspecified bronchus or lung; E03.9 Hypothyroidism, unspecified; E78.5 Hyperlipidemia, unspecified; E83.42 Hypomagnesemia; E11.65 Type 2 diabetes mellitus with hyperglycemia; E87.6 Hypokalemia; F32.9 Major depressive disorder, single episode, unspecified; I11.0 Hypertensive heart disease with heart failure; I44.7 Left bundle-branch block, unspecified; I50.9 Heart failure, unspecified; Z85.038 Personal history of other malignant neoplasm of large intestine; Z85.3 Personal history of malignant neoplasm of breast; Z85.820 Personal history of malignant melanoma of skin; Z79.82 Long term (current) use of aspirin; Z79.899 Other long term (current) drug therapy; Z87.891 Personal history of nicotine dependence; Z90.49 Acquired absence of other specified parts of digestive tract; Z95.0 Presence of cardiac pacemaker; Z99.81 Dependence on supplemental oxygen; Z68.23 Body mass index [BMI] 23.0-23.9, adult
CPT/HCPCS: 0399T; 31624; 31625; 31629; 32555; 36415; 36600; 71045; 71046; 71250; 80048; 81003; 82040; 82378; 82565; 82803; 82962; 83036; 83605; 83615; 83735; 83880; 83986; 84100; 84155; 84157; 84484; 84520; 85025; 86300; 87040; 87070; 87077; 87102; 87147; 87186; 87205; 87324; 88112; 88173; 88305; 88341; 88342; 93005; 93306; 94640; 96365; 99152; 99153; J0295; J0456; J0696; J1650; J2250; J3010; J3370; J3490; J7620; G0461; J1815; J2920; J2930; J3475; J7030; J7040; J7050; J7512

== ENCOUNTER 2017-08-27 19:35 | Emergency (ER) | payer MEDICARE, OTHER ==
[~2017-08-27] VITALS: Ht 170.2 cm; Wt 55.0 kg
[~2017-08-27 19:35] MED LIST changes: +ACET325T14 PO; +ACID1TAB7 PO; +AMPI3VIA IV; +FLUT1BLS3 INH; +INSU100I11 SQ-INSULIN; +IPRA3AMP NPPB
[2017-08-27] MEDS ORDERED: ALBUTEROL SULFATE 2.5 MG/3 ML ONE (20:00)
[2017-08-27 20:11] LABS: MEAN CORPUSCULAR HGB CONC 33.2 g/dL (32.4-35.8); MEAN CORPUSCULAR VOLUME 96.5 fL (80-100); MEAN PLATELET VOLUME 7.7 fL (7.4-10.4); PLATELET COUNT 245 x10^3/uL (130-400); RED BLOOD COUNT 3.46 x10^6/uL (3.82-5.3); RED CELL DISTRIBUTION WIDTH 13.3 % (9.6-15.2)
[2017-08-27 20:18] LABS: MD YES
[2017-08-27 20:21] LABS: ALBUMIN 2.3 g/dL (3.4-5.0); ANION GAP 6 mmol/L (5-15); CALCIUM 8.4 mg/dL (8.5-10.1); CHLORIDE 103 mmol/L (98-107); CREATININE 0.78 mg/dL (0.55-1.02)
[2017-08-27 20:26] LABS: TROPONIN I < 0.015 ng/mL (0.000-0.045)
[2017-08-27 20:49] LABS: EOS% (MANUAL) 1 % (1-7); LYMPHS% (MANUAL) 5 % (22-44); MONOS#(MANUAL) 1.99 x10^3/uL (0.3-2.7); MONOS% (MANUAL) 10 % (2-9); SEG#(MANUAL) 16.72 x10^3/uL (1.8-6.8); SEGS% (MANUAL) 84 % (42-75)
[2017-08-27 20:51] LABS: <PLATELET ESTIMATE> ADEQUATE; <PLT MORPHOLOGY> NORMAL PLT MORPH; ANISOCYTOSIS 1+; POLYCHROMASIA 1+
[2017-08-27] MEDS ORDERED: OMNIPAQUE 350 MG/ML, 100ML BOTTLE ONE (23:36)
[2017-08-27 23:49] VITALS: BP 115/62
== END 2017-08-27 23:51 | disposition home or self-care (01) ==
LOC: ED 21:41
DX: J18.9 Pneumonia, unspecified organism (principal); R06.00 Dyspnea, unspecified; J44.9 Chronic obstructive pulmonary disease, unspecified; I11.9 Hypertensive heart disease without heart failure; E78.5 Hyperlipidemia, unspecified; Z85.3 Personal history of malignant neoplasm of breast; Z85.038 Personal history of other malignant neoplasm of large intestine; Z87.891 Personal history of nicotine dependence
CPT/HCPCS: 36415; 71045; 71275; 80048; 82040; 84484; 85025; 93005; 93970; 94640; 99285; Q9967

== ENCOUNTER 2018-04-25 13:55 | Inpatient (IN) | payer MEDICARE, OTHER ==
[~2018-04-25] VITALS: Ht 170.2 cm; Wt 51.4 kg
[~2018-04-25 13:55] MED LIST changes: -ASPI-621 PO; +ASPI81TA45 PO; -IPRA3AMP NPPB; +IPRA3AMP30 NPPB; +METF500T17 PO; -METF500T5 PO
[2018-04-25] MEDS ORDERED: SODIUM CHLORIDE FLUSH 10ML SYR IVF ONE (14:30)
[2018-04-25 14:35] LABS: BASOPHILS % (AUTO) 0 % (0-1); EOSINOPHILS % (AUTO) 0 % (1-7); LYMPHOCYTES # (AUTO) 1.96 x10^3/uL (1-3.4); LYMPHOCYTES % (AUTO) 15 % (22-44); MD NO; MEAN CORPUSCULAR HEMOGLOBIN 32.7 pg (27.0-34.8); MEAN CORPUSCULAR HGB CONC 33.7 g/dL (32.4-35.8); MEAN PLATELET VOLUME 7.3 fL (7.4-10.4); MONOCYTES # (AUTO) 1.17 x10^3/uL (0.2-0.8); MONOCYTES % (AUTO) 9 % (2-9); NEUTROPHILS # (AUTO) 10.14 x10^3/uL (1.8-6.8); NEUTROPHILS % (AUTO) 76 % (42-75); PLATELET COUNT 221 x10^3/uL (130-400); RED BLOOD COUNT 4.59 x10^6/uL (3.82-5.3); RED CELL DISTRIBUTION WIDTH 12.6 % (9.6-15.2)
[2018-04-25 14:45] LABS: ALBUMIN 3.7 g/dL (3.4-5.0); ANION GAP 8 mmol/L (5-15); CALCIUM 9.1 mg/dL (8.5-10.1); CHLORIDE 96 mmol/L (98-107); CREATININE 0.91 mg/dL (0.55-1.02)
[2018-04-25] MEDS ORDERED: SODIUM CHLORIDE FLUSH 10ML SYR IVF PRN (15:00)
[2018-04-25] MEDS ORDERED: CEFTRIAXONE 1,000 MG in SODIUM CHLORIDE 0.9% 50 ML IVPB ONE (15:00)
[2018-04-25] MEDS ORDERED: AZITHROMYCIN 500 MG in SODIUM CHLORIDE 0.9% 250 ML IVPB ONE (15:00)
[2018-04-25 15:47] VITALS: BP 135/73
[2018-04-25] MEDS ORDERED: INSULIN LISPRO 100 UNITS/ML, PEN SQ-INSULIN SCH (16:30)
[2018-04-25] MEDS ORDERED: ACETAMINOPHEN 325 MG TABLET PO PRN (16:30)
[2018-04-25] MEDS ORDERED: ENALAPRILAT 1.25 MG/ML, 2ML IVPush PRN (16:30)
[2018-04-25] MEDS ORDERED: ONDANSETRON 2MG/ML, 2ML IVPush PRN (16:30)
[2018-04-25] MEDS ORDERED: morphine SULFATE 10 MG/ML, 1ML IVPush PRN (16:30)
[2018-04-25] MEDS ORDERED: TEMAZEPAM 15 MG CAPSULE PO PRN (16:30)
[2018-04-25] MEDS ORDERED: LEVO75TA5 PO (16:31)
[2018-04-25] MEDS: ENOXAPARIN 40 MG/0.4 ML SQ SCH (17:16)
[2018-04-25] MEDS: CEFTRIAXONE PMX 1GM/50ML 50 ML IV SCH (17:16)
[2018-04-25] MEDS: GUAIFENESIN 200 MG TABLET PO SCH ×2 (17:16→22:17)
[2018-04-25] MEDS: LACTOBACILLUS CHEW TABLET PO SCH ×2 (17:16→22:17)
[2018-04-25 17:53] LABS: HEMOGLOBIN A1C 6.1 % (4.2-6.3)
[2018-04-25 19:22] VITALS: BP 120/60
[2018-04-25] MEDS: AZITHROMYCIN 500 MG in SODIUM CHLORIDE 0.9% 250 ML IV SCH (19:38)
[2018-04-25 20:21] LABS: MICROSCOPIC NOT IND
[2018-04-25 20:24] LABS: RAPID INFLUENZA A Negative (Negative); RAPID INFLUENZA B Negative (Negative)
[2018-04-25 20:28] LABS: CULTURE INDICATED? NO
[2018-04-25] MEDS: IMIPRAMINE 25 MG TABLET HOMEMEDPO SCH (21:00)
[2018-04-25] MEDS ORDERED: IMIPRAMINE 25 MG TABLET PO SCH (21:00)
[2018-04-25] MEDS: INSULIN LISPRO 100 UNITS/ML, PEN SQ-INSULIN SCH (22:17)
[2018-04-25] MEDS: SIMVASTATIN 40 MG TABLET PO SCH (22:18)
[2018-04-26 02:16] VITALS: BP 119/66
[2018-04-26] MEDS ORDERED: LEVOTHYROXINE 88 MCG TABLET PO SCH (06:00)
[2018-04-26] MEDS ORDERED: ASPIRIN 81 MG TABLET EC PO SCH (06:00)
[2018-04-26 06:02] LABS: BASOPHILS # (AUTO) 0.03 x10^3/uL (0-0.1); BASOPHILS % (AUTO) 0 % (0-1); EOSINOPHILS % (AUTO) 0 % (1-7); LYMPHOCYTES # (AUTO) 1.37 x10^3/uL (1-3.4); LYMPHOCYTES % (AUTO) 12 % (22-44); MD NO; MEAN CORPUSCULAR HEMOGLOBIN 32.8 pg (27.0-34.8); MEAN CORPUSCULAR HGB CONC 33.6 g/dL (32.4-35.8); MEAN CORPUSCULAR VOLUME 97.6 fL (80-100); MEAN PLATELET VOLUME 7.8 fL (7.4-10.4); MONOCYTES # (AUTO) 0.76 x10^3/uL (0.2-0.8); MONOCYTES % (AUTO) 7 % (2-9); NEUTROPHILS # (AUTO) 9.55 x10^3/uL (1.8-6.8); NEUTROPHILS % (AUTO) 82 % (42-75); PLATELET COUNT 207 x10^3/uL (130-400); RED BLOOD COUNT 4.42 x10^6/uL (3.82-5.3); RED CELL DISTRIBUTION WIDTH 12.8 % (9.6-15.2)
[2018-04-26] MEDS: GUAIFENESIN 200 MG TABLET PO SCH ×4 (06:17→21:41)
[2018-04-26 06:48] VITALS: BP 122/56
[2018-04-26 06:49] LABS: ALANINE AMINOTRANSFERASE 14 U/L (12-78); ALBUMIN 3.2 g/dL (3.4-5.0); ANION GAP 9 mmol/L (5-15); CALCIUM 9.1 mg/dL (8.5-10.1); CHLORIDE 104 mmol/L (98-107); CREATININE 0.68 mg/dL (0.55-1.02)
[2018-04-26 06:52] LABS: ALKALINE PHOSPHATASE 112 U/L (45-117); BILIRUBIN,TOTAL 0.4 mg/dL (0.2-1.0); TOTAL PROTEIN 7.3 g/dL (6.4-8.2)
[2018-04-26] MEDS: ALBUTEROL SULFATE 2.5 MG/3 ML NPPB SCH ×4 (07:40→19:45)
[2018-04-26] MEDS: LACTOBACILLUS CHEW TABLET PO SCH ×3 (07:57→21:41)
[2018-04-26] MEDS: LEVOTHYROXINE 75 MCG TABLET PO SCH (07:57)
[2018-04-26] MEDS: INSULIN LISPRO 100 UNITS/ML, PEN SQ-INSULIN SCH ×4 (07:57→21:00)
[2018-04-26] MEDS: TRELEGY ELLIPTA INH SCH (07:58)
[2018-04-26] MEDS ORDERED: IMIPRAMINE 50 MG TABLET PO SCH (09:00)
[2018-04-26 12:18] VITALS: BP 105/56
[2018-04-26] MEDS: CEFTRIAXONE PMX 1GM/50ML 50 ML IV SCH (16:34)
[2018-04-26] MEDS: ENOXAPARIN 40 MG/0.4 ML SQ SCH (16:35)
[2018-04-26 19:40] VITALS: BP 115/62
[2018-04-26] MEDS: SIMVASTATIN 40 MG TABLET PO SCH (21:00)
[2018-04-26] MEDS: IMIPRAMINE 25 MG TABLET HOMEMEDPO SCH (21:00)
[2018-04-26] MEDS: AZITHROMYCIN 500 MG in SODIUM CHLORIDE 0.9% 250 ML IV SCH (21:40)
[2018-04-27 01:25] VITALS: BP 112/59
[2018-04-27] MEDS: GUAIFENESIN 200 MG TABLET PO SCH ×5 (06:40→21:42)
[2018-04-27] MEDS: ASPIRIN 81 MG TABLET EC PO SCH (06:40)
[2018-04-27] MEDS: LEVOTHYROXINE 75 MCG TABLET PO SCH (06:40)
[2018-04-27 07:25] VITALS: BP 124/54
[2018-04-27] MEDS: INSULIN LISPRO 100 UNITS/ML, PEN SQ-INSULIN SCH ×4 (07:27→21:38)
[2018-04-27] MEDS: LACTOBACILLUS CHEW TABLET PO SCH ×3 (08:18→21:38)
[2018-04-27] MEDS: TRELEGY ELLIPTA INH SCH (08:18)
[2018-04-27] MEDS: POLYETHYLENE GLYCOL 17 GM PACKET PO SCH (09:20)
[2018-04-27 13:21] VITALS: BP 132/59
[2018-04-27] MEDS ORDERED: LACT1TAB13 PO (15:39)
[2018-04-27] MEDS ORDERED: AZIT500T PO (15:39)
[2018-04-27] MEDS ORDERED: CEFD300C37 PO (15:39)
[2018-04-27] MEDS: CEFTRIAXONE PMX 1GM/50ML 50 ML IV SCH (15:47)
[2018-04-27] MEDS: ENOXAPARIN 40 MG/0.4 ML SQ SCH (15:47)
[2018-04-27 19:18] VITALS: BP 129/52
[2018-04-27] MEDS: AZITHROMYCIN 500 MG in SODIUM CHLORIDE 0.9% 250 ML IV SCH (20:14)
[2018-04-27] MEDS: IMIPRAMINE 25 MG TABLET HOMEMEDPO SCH (21:00)
[2018-04-27] MEDS: SIMVASTATIN 40 MG TABLET PO SCH (21:00)
[2018-04-28 02:03] VITALS: BP 131/56
[2018-04-28] MEDS: LEVOTHYROXINE 75 MCG TABLET PO SCH (06:05)
[2018-04-28] MEDS: ASPIRIN 81 MG TABLET EC PO SCH (06:05)
[2018-04-28] MEDS: GUAIFENESIN 200 MG TABLET PO SCH (06:06)
[2018-04-28] MEDS: INSULIN LISPRO 100 UNITS/ML, PEN SQ-INSULIN SCH ×2 (07:00→11:00)
[2018-04-28 07:45] VITALS: BP 124/62
[2018-04-28] MEDS: POLYETHYLENE GLYCOL 17 GM PACKET PO SCH ×2 (07:47→07:50)
[2018-04-28] MEDS: TRELEGY ELLIPTA INH SCH (07:48)
[2018-04-28] MEDS: LACTOBACILLUS CHEW TABLET PO SCH (07:48)
[2018-04-28 12:59] VITALS: BP 119/55
== END 2018-04-28 16:27 | DRG 193 ==
LOC: ED 15:09 → EDIP 15:10 → SUATTDRO 15:12 → 3NW 15:54
PROVIDERS: ADMIT Internal Medicine; ATTEND Internal Medicine
DX: J15.9 Unspecified bacterial pneumonia (principal); J96.21 Acute and chronic respiratory failure with hypoxia; J44.0 Chronic obstructive pulmonary disease with (acute) lower respiratory infection; E03.9 Hypothyroidism, unspecified; E11.9 Type 2 diabetes mellitus without complications; I10 Essential (primary) hypertension; I25.10 Atherosclerotic heart disease of native coronary artery without angina pectoris; F32.9 Major depressive disorder, single episode, unspecified; R91.1 Solitary pulmonary nodule; I25.2 Old myocardial infarction; Z80.0 Family history of malignant neoplasm of digestive organs; Z85.038 Personal history of other malignant neoplasm of large intestine; Z85.3 Personal history of malignant neoplasm of breast; Z85.820 Personal history of malignant melanoma of skin; Z87.891 Personal history of nicotine dependence; Z90.49 Acquired absence of other specified parts of digestive tract; Z95.0 Presence of cardiac pacemaker; Z99.81 Dependence on supplemental oxygen; Z79.899 Other long term (current) drug therapy; Z79.82 Long term (current) use of aspirin
CPT/HCPCS: 36415; 80048; 80053; 81003; 82040; 82962; 83036; 83605; 83735; 84100; 84145; 85025; 87040; 87400; 93005; 94640; 99285; G0378; J0456; J0696; J1650; J7613; J1815; J7050

== ENCOUNTER 2018-09-23 12:55 | Outpatient (CLI) | payer MEDICARE, OTHER ==
[~2018-09-23 12:55] MED LIST changes: +AZIT500T PO; +LACT1TAB13 PO; +LEVO75TA5 PO
== END 2018-09-23 23:59 | disposition home or self-care (01) ==
LOC: CFH 12:55
PROVIDERS: ATTEND Nurse Practitioner
DX: J18.9 Pneumonia, unspecified organism (principal)
CPT/HCPCS: 71046